=== PATIENT | male | born 1955 | race Asian ===

== ENCOUNTER 2025-02-19 12:09 | Emergency (ER) | payer MEDICARE, MEDICAID, SELFPAY ==
[2025-02-19] VITALS (7 sets, daily range): BP systolic 88–113; BP diastolic 37–58; PULSE 82–99; RESP 14–19; TEMP 35.6–36.6; O2SAT 93–98
--- NOTE | 2025-02-19 | XR_ITS ---
MRI abdomen, without contrast. MRCP Date and time of exam: February 19, 2025, 1815 hrs. Indications: Elevated liver function tests on laboratory examination today, gallbladder sonogram 02/19/2025 gallstones, gallbladder wall thickened with edema Technique: Multiple axial and coronal images of the abdomen have been obtained with the Siemens 1.5T MRI scanner. Images obtained included T1 weighted transverse images, T2-weighted transverse images, T2-weighted transverse images fat-suppressed, T2 weighted haste fat suppressed transverse images, T1 weighted images, in and out of phase images, T2-weighted coronal images, breath hold, T2 weighted haze coronal images as well as T2 weighted coronal thick slab images, MRCP. Findings: No focal liver lesions or intrahepatic biliary tract dilatation There is fluid subcapsular to the liver and below the liver and surrounding the gallbladder However, the gallbladder wall does not appear thickened There are multiple gallstones The common bile duct measures 6 mm Axial images 2121 and demonstrate small areas of gallbladder sludge versus 1 to 2 mm stones in the distal common bile duct No pancreatic mass No dilated pancreatic duct Spleen is not enlarged End-stage atrophic kidneys Impression: Cholelithiasis No convincing findings of cholecystitis Suspicious for tiny stones in the distal common bile duct, consider ERCP follow-up
--- NOTE | 2025-02-19 12:23 | XR_ITS ---
Examination: AP chest single view Technique one AP portable semiupright chest single view Date and time: February 19, 2025 12:31 PM, comparison January 24, 2018. FINDINGS: Shortness of breath today. FINDINGS: Mild CHF. Mild to moderate enlargement cardiac contour. Prominent vascular congestion with early perihilar edema Severe osteopenia IMPRESSION: Mild CHF
--- NOTE | 2025-02-19 12:24 | EKG_ITS ---
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
--- NOTE | 2025-02-19 12:24 | PD.EDADULT ---
ED General RME/HPI General Chief complaint: Altered Mental Status Stated complaint: AMS Time Seen by Provider: 02/19/25 12:18 Arrival date/time: 02/19/25 12:09 CC: Altered mental status HPI patient presents to the ER via EMS who report the patient had a complete dialysis and is here from where the patient was picked up. The patient was noted to have a blood sugar of 68, was given oral glucose prior to which the patient was mildly confused. EMS report the patient became perked up . Patient has been answering all questions upon initial assessment. Patient been complaining of low back pain for the past 2 weeks. 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 Patient is awake alert hard of hearing denies chest pain shortness of breath or difficulty breathing. Related Data Home Medications ?Medication ?Instructions ?Recorded ?Confirmed sevelamer carbonate 800 mg tablet 800 mg PO TIDWM SUPPLEMENT 30 days 09/23/10 01/24/18 (Renvela) ##0 pantoprazole 40 mg tablet,delayed 40 mg PO QDAY ##0 01/04/14 01/24/18 release (Protonix) calcium carbonate 650 mg PO BID SUPPLEMENT #0 tabs 10/22/14 01/24/18 vitamin B complex-vitamin C-folic 1 tab PO QDAY SUPPLEMENT #0 tabs 10/22/14 01/24/18 acid 0.8 mg tablet (Nadia-Marvin) cinacalcet 60 mg tablet (Sensipar) 60 mg PO BID #0 tabs 08/18/16 01/24/18 valsartan 160 mg tablet (Diovan) 160 mg PO QDAY #0 tabs 08/18/16 01/24/18 Allergies Allergy/AdvReac Type Severity Reaction Status Date / Time No Known Allergies Allergy Verified 01/24/18 22:12 Review of Systems Review of Systems Narrative Review of Systems: GEN: No fever, no chills, no weight loss EYES: No discharge, no visual changes, no pain HEENT: No ear pain, no congestion, no sore throat PULM: No shortness of breath, no cough, no congestion CV: No chest pain, no dyspnea on exertion, no palpitations GI: No nausea, no vomiting, no diarrhea, no pain, no constipation : No frequency, no urgency, no dysuria MUSC/SKEL: No joint pain, no back pain SKIN: No rash PSYCH: No hallucinations, no depression HEME/LYMPH: No easy bleeding or bruising tendencies NEURO: No weakness, no headache Past Medical History Past Medical History CARDIAC: Positive Angina and Hypertension; Negative Congestive Heart Failure RESPIRATORY: Negative Chronic Obstructive Pulmonary Disease (COPD) GENITOURINARY: Positive Renal Disease ENDOCRINE: Positive Diabetes Mellitus Type 2; Negative Diabetes Mellitus Type 1 HEMATOLOGIC: Positive Anemia OTHER HISTORY: Positive Blood Transfusions Social History SMOKING STATUS: Unknown if ever smoked ED Exam Narrative Physical exam: [General: Deconditioned but not emaciated not in any acute distress Head normocephalic HEENT: Eyes pupils are PERRLA EOMs are intact mouth pink dry membranes uvula is midline swallow symmetrical phonation is normal. All other subsystems of HEENT are within acceptable limits Neck is supple nontender no JVD no edema Chest equal chest rise nontender to palpation Respiratory: Clear to auscultation no wheezes crackles or rubs CV: Rate rhythm is regular no murmurs rubs or clicks Abdomen is soft nontender no masses positive bowel sounds all 4 quadrants Back: No CVA tenderness no spinous process tenderness from cervical spine thoracic and lumbar spine Skin: Dialysis shunt in the right upper arm is clean dry and intact with a dressing attached. Otherwise skin is intact no petechiae rash induration ulceration or crepitus Extremities: Moving all extremity against resistance cap refill less than 2 seconds neurosensory intact Neuro: Awake alert oriented x3 Glascow coma 15 no focal deficits] Course Course Course Narrative: Repeat blood glucose was 144. This, 1-1/2 hours after being given oral glucose via EMS transport for a blood glucose of 68. Troponin noted to be 1.4. EKG shows A-fib. Patient's old EKG was from 2018 and shows sinus rhythm. The patient is not on any blood thinners. The patient and family member state the patient has no PCP goes to [facility] but is mostly managed by Dr Millan. The patient is a full code. At 1749, blood glucose at 114. The rise in the transaminitis and T. bili is concerning from over 1 month and went from normal to considerably elevated as stated in laboratory findings section. MRCP is suspicious for tiny stones in the distal common bile duct at this time we need to send the patient where he can get an ERCP. daughter was notified. Daughter's name is Ayse Vasquez [phone] At [address] River, talent engineer, who agrees to accept the patient at [facility] for ERCP At 1946, patient's daughter informed he is being transferred to [facility] Quality Measures none Orders Category Date Time Status EKG (ED ONLY) *Do not use* NOW Care 02/19/25 12:24 Completed Glucose [Bedside Blood Glucose] NOW Care 02/19/25 12:33 Active Glucose [Bedside Blood Glucose] NOW Care 02/19/25 17:14 Active MRI Screening NOW Care 02/19/25 15:45 Active Saline [Insert IV] NOW Care 02/19/25 15:[address] head/brain wo con Stat Exams 02/19/25 14:40 Completed EKG (ED Only) Stat Exams 02/19/25 12:24 Draft MR MRCP Stat Exams 02/19/25 Completed US gall bladder Stat Exams 02/19/25 15:45 Completed XR chest 1V Stat Exams 02/19/25 12:23 Completed B-Type Natriuretic Peptide Stat Lab 02/19/25 12:51 Completed CBC Stat Lab 02/19/25 12:51 Completed Comprehensive Metabolic Panel Stat Lab 02/19/25 12:51 Completed LDH (Lactate Dehydrogenase) Stat Lab 02/19/25 12:51 Completed Magnesium Stat Lab 02/19/25 12:51 Completed Partial Thromboplastin Time Stat Lab 02/19/25 12:51 Completed Prothrombin Time with INR Stat Lab 02/19/25 12:51 Completed Troponin I Stat Lab 02/19/25 12:51 Completed Troponin I Stat Lab 02/19/25 14:50 Completed Morphine* Inj Med 02/19/25 15:48 Discontinued 4 mg IVP X1 ONE Ondansetron Inj [Zofran Inj] Med 02/19/25 15:48 Discontinued 4 mg IVP X1 ONE Sodium Chloride 0.9% 250 ml [Ns] 250 ml Med 02/19/25 17:33 Discontinued IV 999 mls/hr Vital Signs Vital signs: Vital Signs Temperature 96.0 F L 02/19/25 13:00 Pulse Rate 89 02/19/25 13:00 Respiratory Rate 14 02/19/25 13:00 Blood Pressure 113/55 L 02/19/25 13:00 Pulse Oximetry (%) 95 02/19/25 13:00 Oxygen Delivery Method Room Air 02/19/25 13:00 Discharge Plan Plan Patient Disposition: [facility] Facility Pt Being Transferred to: [facility] Service Needed for Transfer: Gastroenterology Patient condition on transfer: Stable Prescriptions/Referrals Prescriptions/Med Rec: No Action sevelamer carbonate [Renvela] 800 MG tablet 800 mg PO TIDWM 30 Days Qty: 0 pantoprazole [Protonix] 40 MG tablet,delayed release (DR/EC) 40 mg PO QDAY Qty: 0 Patient Comments: TO SUPPRESS [employer]CRETIONS calcium carbonate 650 mg calcium (1,625 mg) Tablet 650 mg PO BID Qty: 0 B complex-vitamin C-folic acid [Nadia-Marvin] 0.8 mg Tablet 1 tab PO QDAY Qty: 0 valsartan [Diovan] 160 MG tablet 160 mg PO QDAY Qty: 0 cinacalcet [Sensipar] 60 MG tablet 60 mg PO BID Qty: 0 Referrals: No Primary/Family,Physician [Primary Care Provider] - In 1 week Problem List Clinical Impression: Choledocholithiasis, Transaminitis, Hypoglycemia Patient/Caregiver Discharge Instructions Print Language: Albanian Stand Alone Forms: [employer] formerly [employer] Award Info., Patient Portal Info Letter PA/CRISTINA Supervising Physician PA/CRISTINA Supervising Physician: Carlos Morales ENP [facility] Clinical Information Provided by: patient and EMS [facility] Meds/Rx considered, not ordered None Labs/Rad/Tests considered, not ordered None Chronic Illness/Social Conditions Explain: ESRD dialysis Labs Lab(s) Interpretation(s): EKG performed at 1246 shows ventricular rate of 85 QRS of 133 QTc of 496 is A-fib left axis deviation. Nonspecific ST segment changes when compared to an old EKG available from 2018 or significant changes this is a sinus rhythm. Appears to be a transition from borderline to full left axis deviation. CBC shows no leukocytosis and H&H of 11.0 and 31.7 note patient is chronically anemic, patient has thrombocytopenia with platelets at 75. CMP shows sodium 133 potassium of 3.2 chloride of 91. Gap of 13 BUN of 15 creatinine of 4.6 calcium of 8.1. T. bili of 4.3 AST of 856 ALT of 757 LDH at 691. Coags show PT of 17.3 and INR 1.6 PTT of 43.3. Initial troponin at 1.492, repeat troponin at 1.382 BNP is 727. Imaging Imaging Interpretation(s): Chest x-ray as interpreted by radiologist old mild CHF. Ultrasound of the gallbladder shows cholelithiasis MRCP is suspicious for tiny stones in the distal common bile duct Medication Administration(s) Medication Administration History Discontinued Medications Sodium Chloride (Ns) 250 mls @ 999 mls/hr IV .Q16M ONE Stop: 02/19/25 17:48 Last Admin: 02/19/25 20:04 Dose: Not Given Documented By: RC Non-Admin Reason: Cancelled by Provider Morphine Sulfate (Morphine Sulf Inj 4 Mg/Ml Vial) 4 mg IVP X1 ONE Stop: 02/19/25 15:49 Last Admin: 02/19/25 17:23 Dose: 4 mg Documented By: ARF Ondansetron HCl (Ondansetron Inj 2 Mg/Ml Inj 2 Ml) 4 mg IVP X1 ONE; Protocol Stop: 02/19/25 15:49 Last Admin: 02/19/25 17:23 Dose: 4 mg Documented By: ARF
[2025-02-19 13:26] LABS: Basophils # (Auto) 0.1 Thou/mm3 (0.0-0.2); Basophils % (Auto) 1 % (0-2.5); Eosinophils # (Auto) 0.0 Thou/mm3 (0.0-0.5); Eosinophils % (Auto) 0 % (0-10); Hematocrit 31.7 % (41.0-53.0); Hemoglobin 11.0 g/dL (13.5-16.0); Immature Granulocytes Auto 0.05 Thou/mm3 (0.00-0.00); Lymphocytes # (Auto) 0.5 Thou/mm3 (1.0-4.8); Lymphocytes % (Auto) 7 % (10-50); Mean Corpuscular HGB Conc 34.7 g/dl (31.0-37.0); Mean Corpuscular Hemoglobin 28.9 pg (25.0-35.0); Mean Corpuscular Volume 83 fL (80-100); Monocytes # (Auto) 0.5 Thou/mm3 (0.0-0.8); Monocytes % (Auto) 7 % (0-12); Neutrophils # (Auto) 6.4 Thou/mm3 (1.8-7.7); Neutrophils % (Auto) 85 % (37-80); Nucleated Red Blood Cell # 0.06 Thou/mm3 (0.00-0.00); Nucleated Red Blood Cell % 1 /100 WBC (0); RDW Standard Deviation 41.9 fL (35.1-43.9); Red Blood Count 3.80 Miln/mm3 (4.50-5.90); White Blood Count 7.5 Thou/mm3 (3.8-10.6)
[2025-02-19 13:36] LABS: INR 1.6 (0.9-1.3); Partial Thromboplastin Time 43.3 Seconds (22.0-36.0); Prothrombin Time 17.3 Seconds (9.0-12.2)
[2025-02-19 13:37] LABS: Alanine Aminotransferase 757 U/L (10-49); Albumin, Serum 3.1 gm/dL (3.4-4.8); Albumin/Globulin Ratio 1.0 (1.2-2.2); Alkaline Phosphatase 111 U/L (46-116); Anion Gap 13 (7-16); Aspartate Amino Transferase 856 U/L (0-34); BUN/Creatinine Ratio 3 Ratio (12-20); Bilirubin,Total 4.3 mg/dL (0.3-1.2); Blood Urea Nitrogen 15 mg/dL (9-23); Calcium 8.1 mg/dL (8.3-10.6); Calcium (Corrected) 8.8 mg/dL (8.5-10.1); Carbon Dioxide 28.7 mMol/L (20.0-31.0); Chloride 91 mMol/L (98-107); Creatinine (Component) 4.6 mg/dL (0.6-1.3); Globulin 3.2 gm/dL (2.3-3.5); Glucose 91 mg/dL (74-106); LDH (Lactate Dehydrogenase) 691 U/L (120-246); Magnesium 1.8 mg/dL (1.6-2.6); Osmolality,Calculated 267 (275-295); Potassium 3.2 mMol/L (3.4-5.1); Sodium 133 mMol/L (136-145); Total Protein 6.3 gm/dL (5.7-8.2); eGFR 13 See Note
[2025-02-19 13:58] LABS: Platelet Count 75 Thou/mm3 (140-440); Slide Review Platelets confirmed
[2025-02-19 14:01] LABS: Troponin I 1.492 ng/mL (0.0-0.045)
[2025-02-19 14:39] LABS: B-Type Natriuretic Peptide 727 pg/mL (0-100)
--- NOTE | 2025-02-19 14:40 | XR_ITS ---
Examination: CT brain head without contrast. 2-D sagittal coronal reconstructions Date and time of exam:February 19, 2025, 1657 hrs., Comparison September 02, 2011 Indications: Onset altered mental status today CTDI: vol (mGy):51.4 DLP: (mGycm):1033 Technique: Multiple CT axial sections of the brain have been obtained, 5 mm slice thickness. Contrast has not been administered. 2-D sagittal, coronal reconstructions have been obtained Low dose protocols were performed. One or more of the following dose reduction techniques were used; automated exposure control, adjustment of the mA and/or KV according to patient size, use of iterative reconstruction technique. Findings: No significant ventricular enlargement. Intra-axial or extra-axial hemorrhage density is not seen. No mass effect or midline shift Basal cisterns are not remarkable. Fourth ventricle is midline. Cranial vault intact. Impression: Negative for acute hemorrhage, mass effect or midline shift Advise clinical correlation follow-up accordingly
[2025-02-19 15:28] LABS: Troponin I 1.382 ng/mL (0.0-0.045)
--- NOTE | 2025-02-19 15:45 | XR_ITS ---
Examination: Abdomen sonogram, Limited Date and time of exam: February 19, 2025 1618 hrs. Indications: Elevated transaminase been on laboratory examination 02/19 2025 Technique: Real-time ramirez scale transabdominal sonographic images of the upper abdomen obtained. Findings: Multiple gallstones Gallbladder wall 0.41 cm suspicious for edema Common bile duct 0.4 cm Liver 15.5 cm irregular contour fatty infiltration mild free fluid surrounding the gallbladder Normal hepatopedal portal venous flow Patent IVC Impression: Cholelithiasis, consider HIDA scan or MRCP follow-up to exclude acute cholecystitis Primary hepatocellular disease
--- NOTE | 2025-02-19 16:10 | PC.NURSE ---
US bedside to do US.
--- NOTE | 2025-02-19 16:11 | PC.NURSE ---
Pt. dialysis access is right arm.
--- NOTE | 2025-02-19 16:11 | PC.NURSE ---
Pt. states his dialysis is MWF.
[2025-02-19] MEDS: MORPHINE SULF INJ 4 MG/ML VIAL IVP (17:23)
[2025-02-19] MEDS: ONDANSETRON INJ 2 MG/ML INJ 2 ML 4 MG IVP (17:23)
--- NOTE | 2025-02-19 19:43 | PC.NURSE ---
194, ACCEPTED TO [facility] BY ,ER TO ER, REPORT #[phone], SPOKE TO [place]
--- NOTE | 2025-02-19 19:45 | PC.NURSE ---
rica made aware of pt current blood pressure 106/58. per provider rica do not give 250 bolus.
--- NOTE | 2025-02-19 22:30 | PC.NURSE ---
report called and given to nurse at [facility]
== END 2025-02-19 22:26 | disposition short-term general hospital (02) ==
PROVIDERS: Registered Nurse General Practice; Emergency Provider Emergency Medicine
DX: K80.70 Calculus of gallbladder and bile duct without cholecystitis without obstruction (principal); R74.01 Elevation of levels of liver transaminase levels; E11.649 Type 2 diabetes mellitus with hypoglycemia without coma; D63.1 Anemia in chronic kidney disease; D69.6 Thrombocytopenia, unspecified; I48.91 Unspecified atrial fibrillation; N18.6 End stage renal disease; E11.22 Type 2 diabetes mellitus with diabetic chronic kidney disease; I13.2 Hypertensive heart and chronic kidney disease with heart failure and with stage 5 chronic kidney disease, or end stage renal disease; I50.9 Heart failure, unspecified; Z99.2 Dependence on renal dialysis
CPT/HCPCS: 36415; 70450; 71045; 74181; 76705; 80053; 80307; 81001; 83615; 83735; 83880; 84484; 85025; 85610; 85730; 93005; 96374; 96375; 99284; J2270; J2405